=== PATIENT | male | born 1965 | race Caucasian/White ===

== ENCOUNTER 2019-04-20 16:17 | Emergency (ER) | payer BC, OTHER ==
[2019-04-20] MEDS ORDERED: cefTRIAXone(*) 1 GM in NS 0.9% 50 ML* 50 ML IVPB ONE (16:31)
[2019-04-20] MEDS ORDERED: Ibuprofen TAB* 400 MG PO ONE (16:40)
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
[2019-04-20 18:22] VITALS: BP 158/97
== END 2019-04-20 18:10 | disposition home or self-care (01) ==
LOC: ED 16:17
DX: S80.02XA Contusion of left knee, initial encounter (principal); M25.469 Effusion, unspecified knee; M54.2 Cervicalgia; R51 Headache; Z79.899 Other long term (current) drug therapy; V43.52XA Car driver injured in collision with other type car in traffic accident, initial encounter; Y92.9 Unspecified place or not applicable; Z79.82 Long term (current) use of aspirin
CPT/HCPCS: 99282; A9270-GY